=== PATIENT | male | born 1965 | race Caucasian/White ===

== ENCOUNTER 2017-04-13 18:52 | Emergency (ER) | payer BC, OTHER ==
--- OUTSIDE RECORDS SUMMARY | 2017-04-13 19:40 | XMS REPORT | Continuity of Care Document ---
:1965 Author Organization [facility] ([facility]) Address [address] [place] [address] Phone [phone] Care Team Providers Name Role Phone Jass Cota Jr. Primary Care Provider [phone] Source Comments This disclosure is being made pursuant to the Care Everywhere program, applicable federal and state laws, and may not contain all informaitonavailable regarding this patient.[facility] ([facility]) Active Allergies and Adverse Reactions Allergen Noted Date Severity Reactions Comments No Known Allergies 08/15/2013 NO REACTION Current Medications Prescription Sig. Disp. Refills Start Date End Date Status carvedilol 6.25 Take 6.25 mg by mouth 2 Active mg tablet times daily with meals. [place]-3 Fatty Take by mouth 2 times Active Acids-Vitamin E daily. (FISH OIL) 1,000 mg Cap SUPPLY FREESTYLE by In Vitro route daily. Active LITE test strips {[facility] RX AMB INSULIN/NON-INSULIN DEPENDENT:23278} FREESTYLE LANCETS Active NA Potassium Acetate Active Gran POTASSIUM PO Take by mouth daily. Active insulin glargine inject 40 Units 5 Each 02/08/2013 Active (LanTUS SOLOSTAR) subcutaneously at 100 unit/mL (3 bedtime. Indications: mL) injection pen DIABETES MELLITUS insulin aspart 5 units with meals 5 mL 11 02/08/2013 Active (NOVOLOG FLEXPEN) Indications: TYPE 2 100 unit/mL DIABETES MELLITUS injection pen rosuvastatin Take 1 Tab by mouth 90 Tab 3 02/08/2013 Active (CRESTOR) 40 mg daily. Indications: tablet HYPERCHOLESTEROLEMIA SUPPLY blood Use blood glucose test 360 Strip 3 02/08/2013 Active glucose (BLOOD strips as directed for 4 GLUCOSE TEST) times daily. reason for test strips overuse: hyperglycemia Indications: DIABETES MELLITUS losartan 50 mg Take 1 Tab by mouth 90 Tab 3 02/08/2013 Active tablet daily. Indications: HYPERTENSION fenofibrate Take 1 Tab by mouth 90 Tab 3 02/08/2013 Active (TRICOR) 145 mg daily. Indications: tablet HYPERTRIGLYCERIDEMIA SUPPLY BD 4 times daily. Use 360 Each 3 02/08/2013 Active ULTRA-FINE JESSICA insulin syringes and/or 32 x 4 MM pen needles as directed. needle Indications: DIABETES MELLITUS metFORMIN 1,000 Take 1 Tab by mouth 2 180 Tab 3 02/18/2013 Active mg tablet times daily. Indications: TYPE 2 DIABETES MELLITUS Active Problems Problem Noted Date Diabetes mellitus type 2, uncontrolled 06/15/2012 HTN (hypertension) 06/15/2012 Hyperlipidemia 06/15/2012 Immunizations Name Dates Previously Given Next Due DTaP, unspecified 10/11/2008 Influenza, unspecified 11/27/2009,11/27/2008 Pneumococcal, unspecified 06/27/2009 Social History Tobacco Use Types Packs/Day Years Used Date Current Some Day Smoker 1 Alcohol Use Drinks/Week oz/Week Comments No Last Filed Vital Signs Vital Sign Reading Time Taken Blood Pressure 144/70 02/08/2013 12:26 PM CDT Pulse 64 10/12/2012 2:17 PM [employer]ED [employer]T SANDER Temperature - - Respiratory Rate - - Height - - Weight 113.853 kg (251 lb) 02/08/2013 12:26 PM CDT Body Mass Index - - Oxygen Saturation - - Plan of Care Health Maintenance Due Date Last Done Comments HCV Screening 1965 Hepatitis B Vaccine (1 of 3 - Primary 1965 Series) Tdap Vaccine 1976 DIABETIC: Cholesterol 1983 Diabetic: Hdl 1983 DIABETIC: Hemoglobin A1C 1983 Diabetic: Ldl 1983 DIABETIC: Microalbumin 1983 DIABETIC: Triglycerides 1983 MMR Vaccine 1983 Pneumococcal Vaccine (1 of 1 - PPSV23) 1984 DIABETIC: Foot Exam 09/05/2012 DIABETIC: Retinal Eye Exam 09/05/2012 Colonoscopy 2015 Prostate Cancer Screening 2015 Influenza Vaccine: Seasonal (#1) 06/27/2016 11/27/2009, 11/27/2008 Td Vaccine 10/11/2018 10/11/2008 Results from Last 3 Months Not on file
--- NOTE | 2017-04-13 20:26 | ERNOTE ---
Lower Extremity HPI - Narrative Date of Service: 04/13/17 - General Lower Extremities Pain: foot: left - pain with walking, ankle: left Time Seen by Provider: 04/13/17 19:20 Source: patient Exam Limitations: no limitations - Immun/Allergies/Home Medications Immunizations: IMMUNIZATION HX Immunizations Up to Date Yes History of Influenza Vaccine Yes Hx Pneumococcal Vaccination Yes Allergies/Adverse Reactions: Allergies Allergy/AdvReac Type Severity Reaction Status Date / Time No Known Allergies Allergy Verified 08/29/13 05:25 Home Medications: HOME MEDICATIONS Rosuvastatin Calcium [Crestor] 10 mg PO DAILY 08/29/13 [Last Taken Unknown] metFORMIN HCL [Metformin HCl ER] 1,000 mg PO BID 08/29/13 [Last Taken Unknown] Atorvastatin Calcium 20 mg PO DAILY 09/26/16 [Last Taken Unknown] Bupropion HCl [Wellbutrin Xl] 300 mg PO DAILY 09/26/16 [Last Taken Unknown] Diltiazem HCl [Tiazac] 240 mg PO DAILY 09/26/16 [Last Taken Unknown] Glimepiride 4 mg PO DAILY 09/26/16 [Last Taken Unknown] Insulin Detemir [Levemir Flextouch] 30 unit SQ HS 09/26/16 [Last Taken Unknown] HYDROcodone/ACETAMINOPHEN [Hydrocodon-Acetaminophen 5-325] 1 each PO TID PRN # 20 tablet 04/13/17 [Last Taken Unknown] - History of Present Illness Narrative: 51-year-old male presents to the emergency room after a work-related injury. Patient states that he slipped on something at work yesterday and injured his left foot patient is complaining of left ankle and left lateral foot pain with walking. Date (Duration): 04/13/17 Occurred: yesterday Location of Incident: work Method of Injury: Reports: fell Reason for Fall: Reports: slipped Loss of Consciousness: Reports: no loss of consciousness Modifying Factors - (Improves): Reports: immobilization Modifying Factors - (Worsens): Reports: movement Associated Symptoms: Denies: unable to bear weight, snapping, popping sensation Other Injuries: Reports: none Review of Systems - Review of Systems Constitutional: Present: no symptoms reported EYE: Present: no symptoms reported ENT: Present: no symptoms reported Respiratory: Present: no symptoms reported Cardiology: Present: no symptoms reported Gastrointestinal/Abdominal: Present: no symptoms reported Genitourinary: Present: no symptoms reported Musculoskeletal: Present: See HPI, joint pain, joint swelling Skin: Present: no symptoms reported Neurological: Present: no symptoms reported Endocrine: Present: no symptoms reported Hematologic/Lymphatic: Present: no symptoms reported Psych: Present: no symptoms reported - Patient's Past Medical History Patient History - Medical: Anxiety, Diabetes Type 2 Insulin Dependent, Depression Patient History - Cardiac/Respiratory: Hypertension, Hyperlipidemia Patient History - Cancer: No Hx of Cancer Patient History - Surgical Procedures: Appendectomy, Hernia Repair Patient History - Other: None - Social History Living Situations: home Abuse History: No History of abuse Psych History: Hx of Anxiety, Hx of Depression Smoking Status: Current every day smoker Patient requests Smoking Cessation Consult: No Initiate information on Smoking Cessation: No Alcohol Use: none Drug Use: none - Immunizations Immunizations Up to Date: Yes Hx Pneumococcal Vaccination: Yes History of Influenza Vaccine: Yes Physical Exam - Physical Exam Narrative: patients left ankle is swollen. pain with ROM to the lateral aspect of foot. General Appearance: Present: wd/wn, alert, no apparent distress Eye Exam: Normal inspection: bilateral Ears, Nose, Throat: Present: normal ENT inspection Neck: Present: normal inspection, nontender, full range of motion Respiratory: Present: no respiratory distress, normal breath sounds, no accessory muscle use, lungs clear Cardiovascular/Chest: Present: regular rate, rhythm, no murmur, normal peripheral pulses Peripheral Pulses: N=norm/S=strong/W=weak/B=bound/A=absent: Dorsalis-pedis (R): Normal, Dorsalis-pedis (L): Normal Gastrointestinal/Abdominal: Present: normal bowel sounds, soft Back Exam: Present: normal inspection, normal range of motion, no vertebral tenderness Extremity Exam: Present: normal except -, joint swelling Neurological Exam: Present: alert, oriented, normal mood/affect, no motor/ sensory deficits Skin Exam: Present: normal color, warm/dry Lymphatic Exam: Present: no adenopathy ED Progress - Date and Time Seen: Date and Time: 04/13/17 21:04 patient did not want any pain medications at this time. stated he took Motrin earlier today. - Vital Signs Patient's Vital Signs:: I have reviewed the patient's vital signs. Vital Signs: Vital Signs 04/13/17 19:03 Temperature 36.5 C Pulse Rate 89 Respiratory 18 Rate Blood Pressure 156/84 O2 Sat by Pulse 98 Oximetry - X-Ray X-Ray #1 X-Ray: ankle Interpretation: Reviewed by me X-ray Comments: Technique: 3 views of the left foot obtained. Comparison: None. Findings: There is a large well-corticated ossification lateral to the calcaneal cuboid joint. This may represent remote trauma. There is significant spurring of the calcaneus and the navicular. No acute fractures identified. Joint spaces appear adequately maintained. Alignment appears within normal limits. IMPRESSION: NO ACUTE OSSEOUS PATHOLOGY IDENTIFIED. Electronically signed by Ismael Cota M.D.. - Progress/Reassessment Chief Complaint: Lower Extremity Pain/ Injury Progress:: Improved Plan - Plan Plan: vonda wrap to left ankle, elevation and ice. Follow up with [facility] on Monday. Spoke with Dr. Borja who say him earlier at work. She agrees with patients plan of care and will also follow up with him as well. Luigi rental sales representative was vary intrusive during exam and patient teaching. She asked this provider if he really needed the prescribed medication that was written and if I would "scratch that". she seems to be very pushy in regards to this patients care and attempting to minimize his diagnosis and need for followup. She interrupted the patient repeatedly and kept telling him that "if I gave him the night off he would have to use his PTO". Departure Clinical Impression: Left ankle sprain Qualifiers: Encounter type: initial encounter Involved ligament of ankle: unspecified ligament Qualified Code(s): S93.402A - Sprain of unspecified ligament of left ankle, initial encounter - Departure Disposition: Home Follow Up Needed Condition: Stable Instructions: LIS for Routine Care of Injuries, Izau-jn-Patd, Ankle Sprain Additional Instructions: Attenuated previous home medications as directed. Take [id number] pain medications as needed. Return to the emergency room if pain is not able to be controlled with [id number] pain medications. He may return to work on light duty with the understanding that he will be sitting and being able to keep the left foot elevated and being able to put ice on and off of that as needed. Prescriptions: HYDROcodone/ACETAMINOPHEN [Hydrocodon-Acetaminophen 5-325] 1 each PO TID PRN # 20 tablet PRN Reason: Pain
[2017-04-13 20:54] VITALS: BP 137/70
== END 2017-04-13 21:10 | disposition home or self-care (01) ==
LOC: ER 18:52
DX: S93.402A Sprain of unspecified ligament of left ankle, initial encounter (principal); W01.0XXA Fall on same level from slipping, tripping and stumbling without subsequent striking against object, initial encounter; Y93.9 Activity, unspecified; Y92.63 Factory as the place of occurrence of the external cause; Y99.0 Civilian activity done for income or pay; I10 Essential (primary) hypertension; E78.5 Hyperlipidemia, unspecified; E11.9 Type 2 diabetes mellitus without complications; Z79.4 Long term (current) use of insulin

== ENCOUNTER 2017-07-04 05:58 | Emergency (ER) | payer OTHER ==
[2017-07-04 06:11] VITALS: BP 163/81
--- NOTE | 2017-07-04 06:27 | ERNOTE ---
Upper Extremity HPI - General Extremities Pain Location: 3rd finger: left - smashed at work Time Seen by Provider: 07/04/17 06:19 Source: patient Exam Limitations: no limitations - Immun/Allergies/Home Medications Immunizations: IMMUNIZATION HX Immunizations Up to Date Yes History of Influenza Vaccine Yes Hx Pneumococcal Vaccination No Allergies/Adverse Reactions: Allergies Allergy/AdvReac Type Severity Reaction Status Date / Time No Known Allergies Allergy Verified 07/04/17 07:33 Home Medications: HOME MEDICATIONS Rosuvastatin Calcium [Crestor] 10 mg PO DAILY 08/29/13 [Last Taken Unknown] metFORMIN HCL [Metformin HCl ER] 1,000 mg PO BID 08/29/13 [Last Taken Unknown] Atorvastatin Calcium 20 mg PO DAILY 09/26/16 [Last Taken Unknown] Bupropion HCl [Wellbutrin Xl] 300 mg PO DAILY 09/26/16 [Last Taken Unknown] Diltiazem HCl [Tiazac] 240 mg PO DAILY 09/26/16 [Last Taken Unknown] Glimepiride 4 mg PO DAILY 09/26/16 [Last Taken Unknown] Insulin Detemir [Levemir Flextouch] 30 unit SQ HS 09/26/16 [Last Taken Unknown] HYDROcodone/ACETAMINOPHEN [Hydrocodon-Acetaminophen 5-325] 1 each PO TID PRN # 20 tablet 04/13/17 [Last Taken Unknown] Cephalexin [Keflex] 500 mg PO QID #40 capsule 07/04/17 [Last Taken Unknown] HYDROcodone/ACETAMINOPHEN [Lorcet 5-325 mg Tablet] 1 each PO QID PRN #20 tablet 07/04/17 [Last Taken Unknown] - History of Present Illness Narrative: pt was working and accidentally got his finger into the machine where it rolls over and it smashed his finger with approx 500 lbs pressure. Pt states he could see bone sticking out near the DIP joint. Denies any other injuries. Wrapped by RN at work. Occurred: just prior to arrival Location of Incident: work Severity: moderate Method of Injury: Reports: direct blow - crush injury Modifying Factors - (Worsens): Reports: movement Other Injuries: Reports: none Review of Systems - Review of Systems Constitutional: Absent: recent illness Musculoskeletal: Present: See HPI Skin: Present: See HPI Neurological: Absent: numbness, tingling - Patient's Past Medical History Patient History - Medical: Diabetes Type 2 Insulin Dependent, GERD Patient History - Cardiac/Respiratory: COPD, Hypertension, Hyperlipidemia Patient History - Cancer: No Hx of Cancer Patient History - Surgical Procedures: Appendectomy, Hernia Repair Patient History - Other: None - Social History Living Situations: home Abuse History: No History of abuse Psych History: Hx of Anxiety, Hx of Depression Smoking Status: Current every day smoker Have you smoked in the past 12 months: Yes Alcohol Use: none Drug Use: none - Immunizations Immunizations Up to Date: Yes Hx Pneumococcal Vaccination: No History of Influenza Vaccine: Yes Physical Exam - Physical Exam General Appearance: Present: wd/wn, alert, no apparent distress Head Exam: Present: normal inspection, no evidence of injury Eye Exam: Normal inspection: bilateral Neck: Present: normal inspection, nontender, supple Respiratory: Present: no respiratory distress, no accessory muscle use Peripheral Pulses: N=norm/S=strong/W=weak/B=bound/A=absent: Radial (L): Normal Extremity Exam: Present: normal except - - left middle finger laceration on the mid pad from nail edge to nail edge. tip of finger still intact and in place. Bleeding minimal and wound was wrapped up at the workplace soon after injury. Inner layers of gauze used to wrap the finger were soaked with blood. pt reports tenderness of tip of finger. cap refil is delayed but present. Nail intact but only loosely attached Neurological Exam: Present: alert, oriented, normal mood/affect Skin Exam: Present: other - laceration left middle finger: as above ED Progress - Vital Signs Vital Signs: Vital Signs 07/04/17 06:08 Temperature 37.0 C Pulse Rate 103 H Respiratory 16 Rate Blood Pressure 163/81 O2 Sat by Pulse 96 Oximetry - X-Ray X-Ray #1 X-Ray: finger Interpretation: Reviewed by me X-ray Comments: IMPRESSION: 1. DISPLACED HORIZONTAL FRACTURE THROUGH THE TUFT OF THE DISTAL PHALANX OF THE THIRD FINGER Electronically signed by Harry Sethi M.D.. - Progress/Reassessment Chief Complaint: Hand Injury/Pain Progress Note-Subjective: 07/04/17 06:50 Spoke with Lenard Barnhart PA-C orthopedics. He asked if it was able to be sutured and if so give antibiotics and call for appointment tomorrow. It appears to be able to be sutured and reduced. Procedures Left 3rd Digit Anesthesia: 2% Lidocaine, Digital Block I & D Prep: betadine prep, sterile drapes applied Length of Repair/Wound (cm): 3.5 Wound's Depth/Shape: into muscle, irregular Wound Explored: to base Wound Intervention: debrided minimal, margins revised Distal NVT: neuro/vasc intact Wound Repaired With: sutures Suture Size/Type: 5-0, nylon Number of Sutures: 11 Layer Closure: Simple Estimated blood loss (ml): 20 Wound Dressing: sterile dressing applied, splint applied Complications: Pt rancho procedure well Departure Clinical Impression: Open fracture of distal phalanx of digit of left hand - Departure Disposition: Home Follow Up Needed Condition: Fair Instructions: Finger Fracture, [id number], Laceration Care, Adult, Easy-to- Read Additional Instructions: Follow up with orthopedics as scheduled. keep splint and wrap on until seen by orthopedics. Take antibiotics until gone, use pain meds as needed Prescriptions: Cephalexin [Keflex] 500 mg PO QID #40 capsule HYDROcodone/ACETAMINOPHEN [Lorcet 5-325 mg Tablet] 1 each PO QID PRN #20 tablet PRN Reason: Pain
[2017-07-04] MEDS ORDERED: MORPHINE SULFATE 2 MG/ML DISP.SYRIN IV ONE (06:36)
[2017-07-04] MEDS ORDERED: ONDANSETRON HCL/PF 2 MG/ML VIAL IV ONE (06:36)
--- OUTSIDE RECORDS SUMMARY | 2017-07-04 06:39 | XMS REPORT | Encounter Summary ---
:1965 Author Organization [facility] [place] [address] Care Team Providers Name Role Phone Unavailable Primary Care Provider Unavailable Encounter Details Date Type Department Care Team Description 05/31/[address] [facility] Carlos A Lua, [facility] Endocrinology [address] [facility] [address] [place] [address] [place] [address] [phone] Social History Tobacco Use Types Packs/Day Years Used Date Never Assessed Sex Assigned at Date Recorded Not on file as of this encounter Plan of Treatment Not on fileas of this encounter Results Lipid panel (02/23/2017) Component Value Ref Range Cholesterol 190 mg/dL Triglycerides 432 mg/dL HDL 33 mg/dL LDL mg/dL VLDL Cholesterol mg/dL LDL Cholesterol, Calculated Cholesterol/HDL TSH (02/23/2017) Component Value Ref Range TSH 1.26 0.35 - 5.00 Basic metabolic panel (02/23/2017) Component Value Ref Range Sodium, Blood 130 136 - 144 mmol/L Potassium, Blood 3.9 3.4 - 4.8 mmol/L Chloride 91 98 - 108 mmol/L CO2, Blood 26 mmol/L Glucose, Blood 346 mg/dL BUN 25.3 mg/dL Creatinine, Serum 0.6 0.6 - 1.2 mg/dL Calcium 9.1 8.6 - 10.2 mg/dL Anion Gap mmol/L eGFR, non- 116 eGFR, 135 Hemoglobin A1c (02/23/2017) Component Value Ref Range Hemoglobin A1C 13.3 % Estimated Avg Glucose 335 in this encounter Visit Diagnoses Not on filein this encounter
--- OUTSIDE RECORDS SUMMARY | 2017-07-04 06:39 | XMS REPORT | Encounter Summary ---
:1965 Author Organization [facility] [employer] [place] [address] Care Team Providers Name Role Phone Unavailable Primary Care Provider Unavailable Reason for Visit Reason Comments bs over 250 Encounter Details Date Type Department Care Team Description 06/26/2017 Telephone [facility] Carlos A Lua CMA bs over 250 Endocrinology [address] [facility] [address] [place] [address] [place] [id number] Social History Tobacco Use Types Packs/Day Years Used Date Current Every Day Smoker Smokeless Tobacco: Never Used Alcohol Use Drinks/Week oz/Week Comments No Sex Assigned at Date Recorded Not on file as of this encounter Plan of Treatment Not on fileas of this encounter Goals Patient Goal Type Goal Recent Progress Patient-Stated? Author Blood Pressure Blood Pressure < 170/102( No Lorenzo Duncan 140/90 7 3:35 PM CDT) C, DO Result Component HEMOGLOBIN A1C < No Carlos A Lua 7.0 LEONIDES Moraes as of this encounter Visit Diagnoses Not on filein this encounter
--- OUTSIDE RECORDS SUMMARY | 2017-07-04 06:39 | XMS REPORT | Clinical Summary ---
:1965 Author Organization [facility] [place] [address] Care Team Providers Name Role Phone Unavailable Primary Care Provider Unavailable Source Comments This disclosure is being made pursuant to the Talko program and maynot contain all information available regarding this patient.[facility] Allergies No Known Allergies Current Medications Be aware that medications may not be up to date as of this document. Alwaysverify current medications with the patient. Prescription Sig. Disp. Refills Start Date End Date Status buPROPion XL (WELLBUTRIN Take 300 mg by mouth 11/11/2016 Active XL) 300 MG 24 hr tablet daily. Coenzyme Q10 (CO Q-10) Take by mouth. 02/13/2017 Active 100 MG CAPS capsule diltiazem (TIAZAC) 240 Take 240 mg by mouth 12/12/2016 Active MG 24 hr capsule nightly. glimepiride (AMARYL) 4 Take 4 mg by mouth Active MG tablet daily. insulin detemir (LEVEMIR 30 Units by Active FLEXTOUCH) 100 UNIT/ML Subdermal route. SOPN injection - pen metFORMIN (GLUCOPHAGE) Take 500 mg by mouth 02/14/2012 Active 500 MG tablet 2 (two) times daily with meals. rosuvastatin (CRESTOR) Take 40 mg by mouth 12/12/2016 Active 40 MG tablet daily. valsartan-hydrochlorothi Take by mouth. 10/03/2016 Active azide (DIOVAN-HCT) 320-25 MG per tablet Active Problems Not on file Encounters Date Type Specialty Care Team Description 06/26/2017 Telephone Endocrinology Carlos A Lua over 250 M, [facility] 06/12/2017 Telephone Endocrinology Elizabeth Fuchs RN 06/02/2017 Initial consult Endocrinology Lorenzo Duncan Uncontrolled type 2 diabetes mellitus with diabetic polyneuropathy, with long-term current use of insulin (HCC) (Primary Dx); C, DO Diabetic polyneuropathy associated with type 2 diabetes mellitus ( HCC); Essential hypertension; Pure hypercholesterolemia 05/31/2017 Abstract Endocrinology Carlos A Lua M, SCHOOL ADMISSIONS REPRESENTATIVE from Last 3 Months Family History Medical History Relation Name Comments Cancer Brother Diabetes Brother Hyperlipidemia Brother Hypertension Brother Diabetes Father Hyperlipidemia Father Hypertension Father Diabetes Maternal Grandfather Hyperlipidemia Maternal Grandfather Diabetes Maternal Grandmother Hyperlipidemia Maternal Grandmother Cancer Mother Diabetes Mother Hyperlipidemia Mother Thyroid disease Mother Diabetes Paternal Grandfather Hyperlipidemia Paternal Grandfather Diabetes Paternal Grandmother Hyperlipidemia Paternal Grandmother Diabetes Sister Heart disease Sister Hyperlipidemia Sister Obesity Sister Relation Name Status Comments Brother Father Maternal Grandfather Maternal Grandmother Mother Paternal Grandfather Paternal Grandmother Sister Social History Tobacco Use Types Packs/Day Years Used Date Current Every Day Smoker Smokeless Tobacco: Never Used Tobacco Cessation:Ready to Quit: No; Counseling Given: Yes Alcohol Use Drinks/Week oz/Week Comments No Sex Assigned at Date Recorded Not on file Last Filed Vital Signs Vital Sign Reading Time Taken Blood Pressure 170/102 06/02/2017 3:35 PM CDT Pulse 100 06/02/2017 3:35 PM CDT Temperature - - Respiratory Rate - - Oxygen Saturation - - Inhaled Oxygen Concentration - - Weight 102.3 kg (225 lb 9.6 oz) 06/02/2017 3:35 PM CDT Height 185.4 cm (6' 1") 06/02/2017 3:35 PM CDT Body Mass Index 29.76 06/02/2017 3:35 PM CDT Plan of Treatment Health Maintenance Due Date Last Done Comments Eye (Ophthalmology) Exam 1975 LAB-URINE MICROALBUMIN 1975 Pneumococcal Medium Risk 19-64 yo (1 of 1 - PPSV23) 1984 Tetanus/Pertussis (1 - Tdap) 1984 Colonoscopy 2015 Well Adult Visit 2015 LAB-HgA1C 05/26/2017 02/23/2017 INFLUENZA IMMUNIZATION (#1) 2017 LAB-LIPIDS 02/23/2018 02/23/2017 Foot Exam 06/02/2018 06/02/2017 Goals Patient Goal Type Goal Recent Progress Patient-Stated? Author Blood Pressure Blood Pressure < 170/102( No Lorenzo Duncan 140/90 7 3:35 PM CDT) C, DO Result Component HEMOGLOBIN A1C < No Carlos A Lua 7.0 M, SCHOOL ADMISSIONS REPRESENTATIVE Results Not on filefrom Last 3 Months Insurance Payer Benefit Plan / Subscriber ID Type Phone Address Group [employer] [facility] [id number] Out of State [phone] [address] [facility] PROVIDERS ONLY [address] [place] [address] [facility] y [phone] [address]
--- OUTSIDE RECORDS SUMMARY | 2017-07-04 06:39 | XMS REPORT | Encounter Summary ---
:1965 Author Organization [facility] [place] [address] Care Team Providers Name Role Phone Unavailable Primary Care Provider Unavailable Reason for Visit Reason Comments Other Encounter Details Date Type Department Care Team Description 06/12/2017 Telephone [facility] Elizabeth Fuchs RN Other Endocrinology [address] [place] [address] [place] [phone] Social History Tobacco Use Types Packs/Day Years [...] < No Carlos A Lua 7.0 M, LEONIDES as of this encounter Visit Diagnoses Not on filein this encounter
--- OUTSIDE RECORDS SUMMARY | 2017-07-04 06:39 | XMS REPORT | Encounter Summary ---
:1965 Author Organization [facility] [place] [address] Care Team Providers Name Role Phone Unavailable Primary Care Provider Unavailable Reason for Visit Reason Comments Diabetes Mellitus Encounter Details Date Type Department Care Team Description 06/02/2017 Initial consult Chanel Duncan, Uncontrolled type 2 diabetes mellitus with diabetic polyneuropathy, with long-term current use of insulin (HCC) (Primary Dx); Endocrinology Lorenzo Lovett, Diabetic polyneuropathy associated with type 2 diabetes mellitus (HCC); [address] [facility] Essential hypertension; [place], [place] [id number] [place] [address] Pure hypercholesterolemia [phone] [id number] Social History Tobacco Use Types Packs/Day Years Used Date Current Every Day Smoker Smokeless Tobacco: Never Used Tobacco Cessation:Ready to Quit: No; Counseling Given: Yes Alcohol Use Drinks/Week oz/Week Comments No Sex Assigned at Date Recorded Not on file as of this encounter Last Filed Vital Signs Vital Sign Reading [...] Mass Index 29.76 06/02/2017 3:35 PM CDT in this encounter Progress Notes Lorenzo Duncan, DO - 06/02/2017 3:15 PM CDTFormatting of this note may be different from the original. [facility] Department of Endocrinology [address] [place] [address] Visit For: Say De Leon Sex: male BD: 1965 on 06/02/2017 HPI Summary Here for T2DM. The patient is a referral from Walt Barnhart MD. I reviewed the patient's most recent notes, which outline the diagnosis and treatment of their medical condition up to this point. The patient was originally on Metformin. The patient is currently on Levemir 30 units daily, glimepiride 4mg daily, and metformin 1000mg twice daily (but only takes once daily). Also on Crestor 40mg dailt, valsartan-HCTZ 320-25mg daily. Works 3rd shift. Fasting BSs run 300-400s. Does not check very often due to high BSs, disgusted with BSs. Very stressed due to recent mother passing, having to sell home--too much for him. Mother has diabetes and thyroid problem. Breakfast: eggs, cereal, toast, leftovers or fruit Lunch: sandwich with veggie-- corn or beets Dinner: chicken, red meat, salad, vegetable (corn or green beans), brussel sprouts, beets, cabbage, cauliflower. Snacks:candy, crackers, fruits, ice cream Beverages: diet soda, mtn dew, pepsi, coke, juice (V8 splash), skim, milk, water , lemonade Recent labs reviewed today: Component Latest Ref Rng 02/23/2017 Sodium, Blood 136-144 mmol/L 130 Potassium, Blood 3.4-4.8 mmol/L 3.9 Chloride 98-108 mmol/L 91 CO2, Blood 26 Glucose, Blood 346 BUN 25.3 Creatinine, Serum 0.6-1.2 mg/dL 0.6 Calcium 8.6-10.2 mg/dL 9.1 eGFR, non- 116 eGFR, 135 Cholesterol 190 Triglycerides 432 HDL 33 Hemoglobin A1C 13.3 Estimated Avg Glucose 335 TSH 0.35-5.00 1.26 Diabetes Type Type 1 no Type 2 yes Age at Onset: 42 Diabetic complications/comorbidities: Chronic kidney disease - no Coronary artery disease no Obesity - yes Diabetic neuropathy - yes in feet, mild Stroke - no Sleep Apnea - yes (no longer has it) Retinopathy - no Peripheral vascular disease - no Diabetic gastroparesis - no Microalbuminuria - no Hypertension - yes History diabetic foot ulcer/amputation - no Diabetic nephropathy - no Hyperlipidemia - yes Hypoglycemic unawareness - no Other Date last ophthalmology exam: 04/2016 Last foot exam: 06/02/17 Podiatry follow-up: no Date of last MNT: 2015 Last diabetes education: 2015 Smoker: yes Hypoglycemia past month: no Aware when blood sugar is low: yes MedicAlert: no Glucagon: no Diet: Meals per day - 2 Snacks per day - 1 Carb counting: no Problems remembering to take medications: no Problems affording medications: yes Exercise: moderately active Self-Monitoring: Blood sugar tested: 0 times per day Problems There is no problem list on file for this patient. Past Medical History History reviewed. No pertinent past medical history. Past Surgical History History reviewed. No pertinent past surgical history. Allergies Review of patient's allergies indicates no known allergies. Immunizations There is no immunization history on file for this patient. Family History Family History Problem Relation Age of Onset Diabetes Mother Hyperlipidemia Mother Thyroid disease Mother Cancer Mother Diabetes Father Hyperlipidemia Father Hypertension Father Diabetes Sister Hyperlipidemia Sister Heart disease Sister Obesity Sister Diabetes Brother Hyperlipidemia Brother Hypertension Brother Cancer Brother Diabetes Maternal Grandmother Hyperlipidemia Maternal Grandmother Diabetes Maternal Grandfather Hyperlipidemia Maternal Grandfather Diabetes Paternal Grandmother Hyperlipidemia Paternal Grandmother Diabetes Paternal Grandfather Hyperlipidemia Paternal Grandfather Social History Social History Substance Use Topics Smoking status: Current Every Day Smoker Smokeless tobacco: Never Used Alcohol Use: No Review of Symptoms Constitutional Activity change: no Appetite change: no Weight gain: no Weight loss: yes HEENT Dental problem: no Visual disturbance: no Respiratory Cough: yes Shortness of breath: yes Cardiovascular Chest pains: no Gastrointestinal Diarrhea: no Nausea: yes Vomiting: no Skin Rash: yes (on foot) Feet Pain: yes Numbness/tingling: yes Sore/ulcer: no Neuro-psychiatric Confusion: no Depression: no ROS Comments: Objective Physical Exam Constitutional: Looks well Psych: Normal affect, aert, oriented, cooperative Neck/throat: no goiter, moist oral mucosa Respiratory: Respiratory effort normal, breath sounds normal, no rales, no rhonchi, no wheezing Cardiac: Heart rate normal, heart rhythm normal, heart sounds normal, no heart murmur Vascular: No edema, DP and PT pulses present Skin: warm, moist Neuro: nonfocal Musculoskeletal: no LE weakness or LE edema Foot Exam: RIGHT LEFT Skin Inspection - normal without lesions normal without lesions Toenails - normal normal Dorsalis Pedis - present but reduced present but reduced Posterior Tibialis - present but reduced present but reduced Monofilament 10 - present but reduced present but reduced Vital Signs Pulse Readings from Last 3 Encounters: 06/02/17 100 BP Readings from Last 3 Encounters: 06/02/17 170/102 Wt Readings from Last 3 Encounters: 06/02/17 102.331 kg (225 lb 9.6 oz) BMI: Body mass index is 29.77 kg/(m^2). @0700 353 , @1400 389 Lab Review Blood sugar averages Fasting Lunch Supper Bedtime - - - - Results for orders placed or performed in visit on 05/31/17 Hemoglobin A1c Collection Time: 02/23/17 12:00 AM Result Value Ref Range Hemoglobin A1C 13.3 % Estimated Avg Glucose 335 Basic metabolic panel Collection Time: 02/23/17 12:00 AM Result Value Ref Range Sodium, Blood 130 136-144 mmol/L Potassium, Blood 3.9 3.4-4.8 mmol/L Chloride 91 98-108 mmol/L CO2, Blood 26 mmol/L Glucose, Blood 346 mg/dL BUN 25.3 mg/dL Creatinine, Serum 0.6 0.6-1.2 mg/dL Calcium 9.1 8.6-10.2 mg/dL Anion Gap mmol/L eGFR, non- 116 eGFR, 135 TSH Collection Time: 02/23/17 12:00 AM Result Value Ref Range TSH 1.26 0.35-5.00 Lipid panel Collection Time: 02/23/17 12:00 AM Result Value Ref Range Cholesterol 190 mg/dL Triglycerides 432 mg/dL HDL 33 mg/dL LDL mg/dL VLDL Cholesterol mg/dL LDL Cholesterol, Calculated Cholesterol/HDL HEMOGLOBIN A1C (%) Date Value 02/23/2017 13.3 No results found for: [id number], [id number] Lab Results Component Value Date CREATININESE 0.6 02/23/2017 Lab Results Component Value Date CHOL 190 02/23/2017 HDL 33 02/23/2017 TRIG 432 02/23/2017 Assessment/Plan Goals for treatment: Hemoglobin A1C< 7, BP< 140/90. Treatment goals and risk of long term care social worker complications with suboptimal control discussed with patient. 1. Type II diabetes mellitus, uncontrolled (HCC) No BS log today. Cont current regimen and send in a BS log in 1 week. Patient instructed to call the clinic if BSs<70 or>300. RTC in 4-8 weeks. Went over low carb diet in detail. Will work especially on changing diet and checking BSs. - Hemoglobin A1c; Future 2. Diabetic polyneuropathy associated with type 2 diabetes mellitus (HCC) Mild, monitor 3. Essential hypertension High today, needs to f/u with PCP. Stressed today. On ARB. 4. Pure hypercholesterolemia On high intensity statin. 5. Depression Screened moderetly positive. Will forward to primary care physician. Laboratory results were reviewed and discussed with the patient. The patient voiced understanding and agreement with the above treatment plan. RTC in 1-2 mo Thank you for this consult. CC Walt Barnhart MD in this encounter Plan of Treatment Name Priority Associated Diagnoses Order Schedule Hemoglobin A1c Routine Uncontrolled type 2 diabetes Expected: 07/21/2017, mellitus with diabetic Expires: 06/02/2018 polyneuropathy, with long-term current use of insulin (HCC) as of this encounter Goals Patient Goal Type Goal Recent Progress Patient-Stated? 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
[2017-07-04] MEDS ORDERED: MORPHINE SULFATE 4 MG/ML SYRG ONE (06:53)
[2017-07-04] MEDS ORDERED: ONDANSETRON HCL/PF 2 MG/ML VIAL ONE (06:54)
[2017-07-04] MEDS ORDERED: ceFAZolin SODIUM 1 GM VIAL IV ONE (07:00)
[2017-07-04] MEDS ORDERED: LIDOCAINE HCL 1,000 MG/50 ML VIAL ONE (07:12)
[2017-07-04] MEDS ORDERED: ceFAZolin SODIUM 1 GM in DEXTROSE 5 % IN WATER 100 ML IV ONE ×2 (07:30)
== END 2017-07-04 08:38 | disposition home or self-care (01) ==
LOC: ER 05:58
PROC: 0KQD0ZZ Repair Left Hand Muscle, Open Approach (ICD-10-PCS; principal; 2017-07-04)
PROC: 2W3KX1Z Immobilization of Left Finger using Splint (ICD-10-PCS; 2017-07-04)
DX: S62.633B Displaced fracture of distal phalanx of left middle finger, initial encounter for open fracture (principal); F17.200 Nicotine dependence, unspecified, uncomplicated; W31.89XA Contact with other specified machinery, initial encounter; Y93.89 Activity, other specified; Y92.63 Factory as the place of occurrence of the external cause; Y99.0 Civilian activity done for income or pay
CPT/HCPCS: 13132; 29130; 73140; 96365; 96375; 99284; J2405

== ENCOUNTER 2017-07-14 12:35 | Day surgery (SDC) | payer OTHER ==
[~2017-07-14 12:35] MED LIST: RINGER'S SOLUTION,LACTATED 1,000 ML IV PRN; ceFAZolin SODIUM 1 GM VIAL IV PRN; ceFAZolin SODIUM 2 GM in DEXTROSE 5 % IN WATER 50 ML IV PRN
[2017-07-14] MEDS ORDERED: RINGER'S SOLUTION,LACTATED 1,000 ML IV ONE (13:25)
[2017-07-14] MEDS ORDERED: BUPIVACAINE HCL 50 ML VIAL IJ ONE (13:45)
--- NOTE | 2017-07-14 15:03 | OR ---
Operative Report - Dictated Report Narrative: Date: 07/14/2017 Physician: Floyd Gilliam M.D. Industrial Engineering Director: Fabián Duffy PA-C Preoperative diagnosis: Left long fingertip crush injury Postoperative diagnosis: Left long fingertip crush injury Procedure: Revision amputation left long fingertip through distal interphalangeal joint Anesthesia: MAC Plus digital block Complications: None Estimated blood loss: Minimal Tourniquet time: 33 Minutes with forearm esmarch band Specimens: None Retained implants: None Drains: None Indications: Say Is a 51 year-old male diabetic and smoker who sustained a crush injury to the left long fingertip at work. He was initially seen in the emergency department where the wound was irrigated and provisionally closed. He received a dose of IV antibiotics in the emergency department, the wound was dressed with a biologic dressing, he was placed on oral antibiotics, and instructed to follow up in our clinic following day. Examination in clinic the following day revealed a significant laceration through the proximal volar finger pad with a crushing injury distally and associated nailbed injury with a distal phalangeal tuft fracture. We performed a irrigation debridement with nail bed repair in clinic with concern about whether the volar finger pad would remain viable. He developed necrosis of the volar finger pad necessitating revision amputation of the fingertip. The risks, benefits, and alternatives were discussed in clinic. The risks being bleeding, infection, wound complications, nail regrowth, painful neuroma, need for additional procedures, and risks with anesthesia. Consent was obtained in the clinic. Procedure: After marking the correct extremity in the preoperative holding area, a timeout was performed in the operating room. IV antibiotics consisting of 2 g of Ancef were administered prior to the procedure. A well-padded, nonsterile tourniquet was applied to the operative upper arm. The arm was exsanguinated and the tourniquet was inflated to 250 mmHg. 0.5% Marcaine without epinephrine was used to perform a digital block of the left long finger. Using loupe magnification, the nail plate was removed. Inspection of the fingertip demonstrated that the volar finger pad was necrotic and nonviable. Upon deeper dissection it was noted that the original injury completely disrupted the ulnar sided neurovascular bundle. The radial side appeared to be intact however the distal portion of the soft tissue fingertip was all nonviable. All nonviable tissue was then sharply debrided with a knife. Following this it was noted that we did not have enough volar tissue to perform any kind of local advancement. Given the amount of tissue that had to be debrided it was determined that the best option at this point was revision amputation through the distal interphalangeal joint with primary closure. Sharp dissection was carried down circumferentially around the distal phalanx. The joint capsule and collateral ligaments were divided leaving only the profundus tendon attached which was then divided more proximally by pulling it up out of the wound. After removing the distal phalanx returned our attention to the nail matrix. All remaining nail bed and nail matrix tissue was removed sharply with a knife. Next the radial and ulnar digital nerves were dissected out and sharply divided as proximally as possible to minimize painful neuroma formation. The distal aspect of the digital arteries were identified and cauterized. Next we performed additional sharp debridement of all remaining skin flaps to allow for a clean tension-free closure. The wound was thoroughly irrigated. The tourniquet was then let down and hemostasis was achieved via combination of direct pressure and bipolar cautery. Skin flaps were noted to have good blood flow. The skin was then closed with interrupted 4-0 nylon. Sterile dressings consisting of Xeroform, 4 x 4, and tube gauze were applied. All sponge, needle, blade, and instrument counts were correct prior to closing the wounds. The patient was awoken and transferred to the post-anesthesia care unit in stable condition.
[2017-07-14 15:53] VITALS: BP 137/79
== END 2017-07-14 12:36 | disposition home or self-care (01) ==
LOC: AMB 12:35
PROVIDERS: ATTEND Orthopaedic Surgery
PROC: 0X6R0Z3 Detachment at Left Middle Finger, Low, Open Approach (ICD-10-PCS; principal; 2017-07-14 15:45)
DX: S67.193D Crushing injury of left middle finger, subsequent encounter (principal); E11.9 Type 2 diabetes mellitus without complications; J44.9 Chronic obstructive pulmonary disease, unspecified; E78.5 Hyperlipidemia, unspecified; I10 Essential (primary) hypertension; F17.200 Nicotine dependence, unspecified, uncomplicated; Z68.30 Body mass index [BMI] 30.0-30.9, adult; W31.89XD Contact with other specified machinery, subsequent encounter